=== PATIENT | male | born 1970 | race Caucasian/White ===

== ENCOUNTER 2017-01-19 15:31 | Emergency (ER) | payer OTHER ==
[2017-01-19 16:50] VITALS: BP 103/68
== END 2017-01-19 16:51 | disposition home or self-care (01) ==
LOC: ED 15:31
DX: S92.421A Displaced fracture of distal phalanx of right great toe, initial encounter for closed fracture (principal); W22.8XXA Striking against or struck by other objects, initial encounter; Y93.89 Activity, other specified; Y99.8 Other external cause status; Y92.89 Other specified places as the place of occurrence of the external cause